=== PATIENT | female | born 1940 | race Caucasian/White ===

== ENCOUNTER 2017-02-21 10:27 | Emergency (ER) | payer MEDICARE, BC ==
[~2017-02-21 10:27] MED LIST: ALLEGRA180 PO; B-125000 MCG SL; DIOVAN HCT PO; OS500+D PO; PROTONIX PO; VITAMIN D1000 UNI1 PO
[2017-02-21 11:24] LABS: BASOPHILS 0.1 %; BASOPHILS ABSOLUTE 0.01 10/3/uL (0.0-0.16); EOSINOPHILS 0 %; ER CBC TAT 0 Hrs 08 Mins; HEMATOCRIT 42.5 % (36.0-48.0); HEMOGLOBIN 15.4 g/dL (12.0-16.0); IMMATURE GRANULOCYTES 0.2 %; IMMATURE GRANULOCYTES ABSOLUTE 0.02 10/3/uL (0.0-0.11); LYMPHOCYTES 8.4 %; LYMPHOCYTES ABSOLUTE 0.81 10/3/uL (0.67-4.30); MANUAL DIFF NO %; MEAN CORPUS HGB CONC 36.2 g/dL (32.0-36.0); MEAN CORPUSCULAR HEMOGLOB 30.3 pg (26.0-34.0); MEAN CORPUSCULAR VOLUME 83.7 fL (80-100); MEAN PLATELET VOLUME 10.8 fL (9.2-13.0); MONOCYTES 7.9 %; MONOCYTES ABSOLUTE 0.76 10/3/uL (0.21-1.20); NEUTROPHILS 83.4 %; NEUTROPHILS ABSOLUTE 8.07 10/3/uL (2.02-8.40); PLATELET COUNT 245 10/3/uL (150-400); RBC DISTRIBUTION WIDTH 12.7 % (12.0-16.0); RED CELL COUNT 5.08 10/6/uL (4.0-5.6); WHITE BLOOD CELLS 9.7 10/3/uL (4.5-10.5)
[2017-02-21 11:37] LABS: ALBUMIN 3.8 G/DL (3.5-5.0); BUN (BLOOD UREA NITROGEN) 10 MG/DL (6-23); CALCIUM, SERUM 8.5 MG/DL (8.5-10.4); GFR AFRICAN AMERICAN 97 ML/MIN (>=60); GFR NON AFRICAN AMERICAN 84 ML/MIN (>=60); GLUCOSE, SERUM 93 MG/DL (60-99); SGOT(AST) 23 U/L (5-40); SGPT(ALT) 27 U/L (5-65); TOTAL BILIRUBIN 0.8 MG/DL (0-1.2); TOTAL PROTEIN 7.3 G/DL (6.0-8.5)
[2017-02-21 11:39] LABS: A/G RATIO 1.1 (0.7-1.9); ALKALINE PHOSPHATASE 92 U/L (45-117); CHLORIDE, SERUM 91 MMOL/L (96-112); CO2 (CARBON DIOXIDE) 24 MMOL/L (24-34); GLOBULIN 3.5 G/DL (2.5-4.1)
[2017-02-21 11:48] LABS: POTASSIUM, SERUM 2.9 MMOL/L (3.5-5.3); SODIUM, SERUM 130 MMOL/L (135-148)
[2017-02-21 11:50] LABS: ASCORBIC ACID (UR NOT ORDER) NEG (NEG); BILIRUBIN, URINE NEGATIVE (NEG); KETONE, URINE 80 MG/DL (NEG); LEUKOCYTE ESTERASE(NOT OR NEG (NEG); NITRITE (URINE) NEG (NEG); WBC (NOT ORDERED) (RFLEX) 1 (0-5)
[2017-02-21 11:52] LABS: ER URINALYSIS TAT 0 Hrs 34 Mins
== END 2017-02-21 13:50 | disposition home or self-care (01) ==
LOC: ER 10:27
PROVIDERS: Nurse Practitioner Family
DX: B34.9 Viral infection, unspecified (principal); E87.6 Hypokalemia; E87.1 Hypo-osmolality and hyponatremia; I10 Essential (primary) hypertension; K21.9 Gastro-esophageal reflux disease without esophagitis; M81.0 Age-related osteoporosis without current pathological fracture; Z87.891 Personal history of nicotine dependence; Z90.710 Acquired absence of both cervix and uterus; Z79.899 Other long term (current) drug therapy
CPT/HCPCS: 74176; 80053; 81001; 83690; 85025; 87493; 87493-59; 93005; 99285; A9270-GY